=== PATIENT | male | born 1950 | race Caucasian/White ===

== ENCOUNTER 2020-01-27 08:14 | Outpatient (CLI) | payer OTHER ==
[2020-01-30] MEDS ORDERED: BELBUCA300 MCG PO (10:40)
[2020-01-30] MEDS ORDERED: LEVO-T100 MCG PO (10:41)
[2020-01-30] MEDS ORDERED: ABILIFY MYCITE5 MG PO (10:41)
[2020-01-30] MEDS ORDERED: LOSARTAN POTASS50 MG PO (10:41)
[2020-01-30] MEDS ORDERED: AMBIEN10 MG PO (10:42)
== END 2020-01-27 08:17 | disposition home or self-care (01) ==
LOC: RAD 08:14 → EDBD 08:14 → RAD 08:17
DX: R19.5 Other fecal abnormalities (principal); A63.0 Anogenital (venereal) warts; D12.9 Benign neoplasm of anus and anal canal

== ENCOUNTER 2020-01-27 08:56 | Outpatient (CLI) | payer OTHER ==
[2020-01-30] MEDS ORDERED: BELBUCA300 MCG PO (10:40)
[2020-01-30] MEDS ORDERED: LOSARTAN POTASS50 MG PO (10:41)
[2020-01-30] MEDS ORDERED: LEVO-T100 MCG PO (10:41)
[2020-01-30] MEDS ORDERED: ABILIFY MYCITE5 MG PO (10:41)
[2020-01-30] MEDS ORDERED: AMBIEN10 MG PO (10:42)
== END 2020-01-27 15:00 | disposition home or self-care (01) ==
LOC: EKG 08:56
DX: I10 Essential (primary) hypertension (principal)

== ENCOUNTER 2020-02-06 05:30 | Day surgery (SDC) | payer OTHER ==
[~2020-02-06 05:30] MED LIST: ABILIFY MYCITE5 MG PO; AMBIEN10 MG PO; BELBUCA300 MCG PO; LEVO-T100 MCG PO; LOSARTAN POTASS50 MG PO
[2020-02-06] MEDS ORDERED: PERCOCET 5-3251 EACH PO (09:12)
[2020-02-06] MEDS ORDERED: RECTICARE30 GM TOP (09:13)
== END 2020-02-06 13:00 | disposition home or self-care (01) ==
LOC: CIR.AMB 05:30
DX: D12.9 Benign neoplasm of anus and anal canal (principal); A63.0 Anogenital (venereal) warts; K64.8 Other hemorrhoids

== ENCOUNTER 2023-08-17 11:10 | Emergency (ER) | payer OTHER ==
[~2023-08-17] VITALS: Ht 170.2 cm; Wt 81.6 kg
[~2023-08-17 11:10] MED LIST changes: +PERCOCET 5-3251 EACH PO; +RECTICARE30 GM TOP
[2023-08-17] MEDS ORDERED: WELLBUTRIN SR150 MG PO (11:42)
[2023-08-17] MEDS ORDERED: ROSUVASTATIN CAL5 MG PO (11:42)
[2023-08-17 13:53] LABS: HEMATOCRIT 42.8 % (39.0-48.0); HEMOGLOBIN 14.4 g/dL (13-16.00); MEAN CELL VOLUME 94.2 fL (80.0-100.00); MEAN CORPUSCULAR HEMOGLOBIN 31.7 pg (27.00-32.0); MEAN CORPUSCULAR HGB CONC 33.6 g/dl (32.0-36.0); PLATELET COUNT 151 K/uL (150-450); RED BLOOD COUNT 4.54 M/uL (4.00-6.00); RED CELL DISTRIBUTION WIDTH 13.8 % (11.5-14.5)
[2023-08-17 14:12] LABS: CALCIUM 8.8 mg/dL (8.5-10.1); CREATININE SERUM 1.12 mg/dL (0.70-1.30); GFR 64.81; POTASSIUM 4.08 mEq/L (3.5-5.1)
== END 2023-08-17 15:24 | disposition home or self-care (01) ==
LOC: ER 11:10
DX: K29.70 Gastritis, unspecified, without bleeding (principal)
CPT/HCPCS: 36415; 96365; 99284; J3490

== ENCOUNTER 2023-08-28 05:30 | Day surgery (SDC) | payer OTHER ==
[2023-08-23 15:27] LABS: INR 1.08; PARTIAL THROMBOPLASTIN TIME 25.8 SECONDS (22.0-34.0); PROTHROMBIN TIME 11.3 SECONDS (9.0-11.5)
[~2023-08-28] VITALS: Ht 170.2 cm; Wt 81.6 kg
[~2023-08-28 05:30] MED LIST changes: +ROSUVASTATIN CAL5 MG PO; +WELLBUTRIN SR150 MG PO
== END 2023-08-28 16:50 | disposition home or self-care (01) ==
LOC: CIR.AMB 05:30
PROVIDERS: ATTEND Surgery
DX: K80.10 Calculus of gallbladder with chronic cholecystitis without obstruction (principal); Z20.822 Contact with and (suspected) exposure to COVID-19; E03.9 Hypothyroidism, unspecified; I10 Essential (primary) hypertension